=== PATIENT | male | born 1990 | race Caucasian/White ===

== ENCOUNTER 2023-12-12 17:27 | Emergency (ER) | payer OTHER, MEDICARE, MEDICAID ==
[2023-12-12 17:48] VITALS: BP 120/85; PULSE 100
[2023-12-12 18:22] LABS: BLOOD UREA NITROGEN,BUN 14 mg/dL (7-18); CALCIUM 9.1 mg/dL (8.6-10.2); CARBON DIOXIDE,CO2 30 mmol/L (21-32); CHLORIDE,CL 103 mmol/L (100-110); EST CRCL DRUG DOSING (CG) 100.07 mL/min; ESTIMATED GFR 103 mL/min (>60); GLUCOSE RANDOM 99 mg/dL (80-116); POTASSIUM,K 3.9 mmol/L (3.5-5.3); SODIUM,NA 140 mmol/L (135-145)
[2023-12-12] MEDS: Iopamidol 755 Mg/ML 100 ML Bottle IV SCH (18:36)
== END 2023-12-12 19:52 | disposition home or self-care (01) ==
LOC: FB.ED 17:27
DX: M54.6 Pain in thoracic spine (principal); V49.50XA Passenger injured in collision with unspecified motor vehicles in traffic accident, initial encounter; Y92.410 Unspecified street and highway as the place of occurrence of the external cause
CPT/HCPCS: 36415; 71260; 80048; 99283; 99284; Q9967